=== PATIENT | female | born 2005 | race Caucasian/White ===

== ENCOUNTER 2025-08-29 18:54 | Emergency (ER) | payer BC ==
[~2025-08-29 18:54] MED LIST: Iopamidol-370 76% 500 ML MDV (1 ML CHARGE) ONE
[2025-08-29] MEDS ORDERED: Ketamine In 0.9 % NaCl 50 MG/5 ML SYRINGE ONE (20:46)
[2025-08-29] MEDS ORDERED: Ondansetron PF 4 MG/2 ML Vial ONE (20:46)
[2025-08-29 21:50] LABS: BHCG - Serum Negative (NEGATIVE); Pregs Control Background? CLEAR/WHITE (CLR/WHITE); Pregs Control Bar Appear? YES (CONTROL BAR)
[2025-08-29] MEDS ORDERED: Acetaminophen 500 MG TAB ONE (22:30)
== END 2025-08-30 00:03 | disposition home or self-care (01) ==
LOC: ERS 18:54
DX: M54.6 Pain in thoracic spine (principal); V43.52XA Car driver injured in collision with other type car in traffic accident, initial encounter
CPT/HCPCS: 36415; 70450; 71260; 72125; 74177; 84703; 96374; 96375; J2405; J3490; Q9967